=== PATIENT | female | born 1975 | race Caucasian/White ===

== ENCOUNTER 2021-01-16 17:02 | Emergency (ER) | payer OTHER ==
[~2021-01-16] VITALS: Ht 165.1 cm; Wt 54.4 kg
[2021-01-16] MEDS ORDERED: TRETINOIN (17:40)
[2021-01-16] MEDS ORDERED: ACZONE60 GM TP (17:40)
[2021-01-16] MEDS ORDERED: ORACEA40 MG PO (17:41)
== END 2021-01-16 20:58 | disposition home or self-care (01) ==
LOC: ER 17:02
DX: R53.81 Other malaise (principal); T59.891A Toxic effect of other specified gases, fumes and vapors, accidental (unintentional), initial encounter; Y92.813 Airplane as the place of occurrence of the external cause